=== PATIENT | male | born 1965 | race Caucasian/White ===

== ENCOUNTER 2020-02-27 10:11 | Emergency (ER) | payer BC, SELFPAY ==
[2020-02-27 10:12] VITALS: BP 140/86; PULSE 76; RESP 17; TEMP 36.1; O2SAT 97; BMI 32.0
--- NOTE | 2020-02-27 10:20 | NURSING ---
NO OLD EKGS
--- NOTE | 2020-02-27 10:26 | EKG12_ITS ---
Test Reason : NUMBNESS/TINGLING Blood Pressure : / mmHG Vent. Rate : 067 BPM Atrial Rate : 067 BPM P-R Int : 170 ms QRS Dur : 094 ms QT Int : 400 ms P-R-T Axes : 021 -17 016 degrees QTc Int : 422 ms Normal sinus rhythm Normal ECG Confirmed by PAOLO LOPEZ, RENEE ([id number]), writer editor LUCI DICKINSON ([id number]) on 03/01/2020 10:21:43 AM Referred By: MARS/ Confirmed By:RENEE BOONE MD
[2020-02-27] MEDS: Aspirin 81 MG TAB.CHEW 324 MG PO (10:42)
[2020-02-27 10:48] LABS: Absolute Lymphocyte Count 1.78 X10^3/uL (0.83-4.51); Absolute Neutrophil Count 3.5 X10^3/uL (2.0-7.7); Basophil# 0.04 X10^3/uL; Basophil% 0.7 % (0-1); Eosinophil# 0.23 X10^3/uL; Eosinophils% 3.7 % (0-5); Hematocrit 45.9 % (40-54); Lymphocyte # 1.78 X10^3/ul (4.0); Lymphocyte % 28.9 % (19-41); Mean Corp Hgb Conc 34.9 g/dL (32-36); Mean Corpuscular Hgb 31.6 pg (27.0-32.0); Mean Corpuscular Volume 90.7 fL (80-94); Mean Platelet Vol. 8.8 fl (6.2-12.0); Monocyte% 9.8 % (0-10); NRBC Flagged by Analyzer 0 % (0-5); Neutrophil # 3.49 X10^3/uL (2.7-7.7); Neutrophil % 56.7 % (47-70); Platelet Count 283 K/mm3 (150-450); RBC Distribution Width CV 12.5 % (11.6-14.6); RBC Distribution Width SD 40.8 fl (35.1-43.9); Red Blood Count 5.06 M/mm3 (4.6-6.2); White Blood Count 6.2 K/mm3 (4.4-11.0)
--- NOTE | 2020-02-27 10:50 | RAD_ITS ---
STUDY: X-RAY CHEST REASON FOR EXAM: Male, 54 years old. PT STATES HE WOKE UP WITH NUMBNESS AND TINGLING TO B/L ARMS -- ADDS THAT HIS IS HAVING CHEST PAIN WITH BREATHING NOW. TECHNIQUE: PA and lateral views of the chest. COMPARISON: None. FINDINGS: EKG electrodes are seen. The lungs are clear and expanded. There is no demonstrated pleural abnormality. Normal size heart. Normal mediastinum and amarjit. Normal visualized pulmonary arteries. Normal visualized aortic arch and descending thoracic aorta. There are mild degenerative changes of the visualized thoracic spine. Normal visualized ribs, clavicles, and shoulders. There is no demonstrated abnormality of the visualized soft tissue structures of the upper abdomen. RAD/Chest PA and Lateral IMPRESSION: Normal x-ray examination of the chest. Electronically Signed: Reji Villegas, at 11:02 EDT , Service support ,
[2020-02-27 11:06] LABS: D-Dimer Quantitative (DVT/PE) 0.38 FEU/ug/m (0.27-0.49)
[2020-02-27 11:13] LABS: Anion Gap 7 (5-15); BUN 13 mg/dL (7-18); BUN/Creat Ratio 14.8 RATIO (10-20); Calcium,Total 9.3 mg/dL (8.5-10.1); Chloride 105 mmol/L (98-107); Creatinine, Serum 0.88 mg/dL (0.70-1.30); EST Glomerular Filtration Rate 96 mL/min (>60); Est Glom Filt Rate - Afr Amer 116 mL/min (>60); Glucose 98 mg/dL (74-106); Magnesium 2.1 mg/dL (1.6-2.6); Sodium Level 139 mmol/L (136-145); Thyroid Stim Hormone (TSH) 1.57 uIU/mL (0.358-3.74)
--- NOTE | 2020-02-27 11:16 | ED.VIS.CHEST ---
History of Present Illness Chief Complaint: Numb/Ting Informant: Patient Narrative: Patient presenting for evaluation secondary to chest pain. Patient reports that over the course of the last couple weeks he has been dealing with a generalized feeling of illness and fatigue. He reports that it has been continuous. Has not been associated with heat or cold intolerance appetite change or any sort of weight loss. Patient does state that it is been associated with chest pain that will go on throughout the day, and it either goes away or he forgets about it. Patient states that today however, it was associated with a feeling of tingling in his bilateral arms left being worse than right. He denies any numbness or weakness. He denies any visual changes or speech difficulty associated with this. Patient denies any history of hypertension, hyperlipidemia, diabetes, premature heart disease, or smoking. He does frequently travel for work, and most recent long travel was the beginning of November. He feels that potentially has some asymmetric swelling in his left leg occasionally. He denies any infectious signs or symptoms. He is never had a stress test. Review of systems otherwise negative. Past Medical History - Allergies and Home Meds Allergies/Adverse Reactions: Allergies No Known Allergies Allergy (Verified 02/27/20 10:12) Primary Care Physician: Care Physician,No Primary [Primary Care Provider] - Prior records reviewed: Yes Past Medical History: None Smoking Status: Former smoker Alcohol: None Drugs: None Review of Systems All systems negative except as indicated General: Reports: Malaise Eyes: Denies: Visual changes - bilaterally, Diplopia ENT: Denies: Rhinorrhea, Sore throat Cardiovascular: Reports: Chest pain Respiratory: Denies: Dyspnea, Cough, Dyspnea on exertion Gastrointestinal: Denies: Abdominal pain, Nausea, Vomiting, Diarrhea, Melena, Hematochezia Genitourinary: Denies: Dysuria, Hematuria, Frequency Musculoskeletal: Denies: Back pain, Extremity Pain Skin: Denies: Rash, Wounds Neurological: Reports: Parasthesia Physical Exam Vital Signs/Narrative: Vital Signs Temp Pulse Resp BP Pulse Ox 02/27/20 10:12 96.9 F L 76 17 140/86 H 97 Inital Vital Signs reviewed: Yes General: Well nourished, Well developed, No Acute Distress Head: Normocephalic, Atraumatic Eyes: Perrl, EOMI ENT: Moist mucous membranes, No rhinorrhea Neck: Supple, Nontender Cardiovascular: Regular rate, Regular rhythm, No murmurs, - - 2+ radial pulses bilaterally symmetric. No evidence of vesicular rash on the chest Respiratory: No distress, CTA bilaterally, Chest nontender Abdomen: Soft, Nontender, Nondistended, Normal bowel sounds Back: Nontender, Normal Inspection Extremities: Nontender, No edema Skin: Normal color, No rash Neurological: Alert, Oriented x3, Cranial nerves II-XII grossly intact, Normal Strength, Normal Sensation Psychological: Normal affect, Normal Mood Diagnostic/Tx/Re-eval Clinical Impression(s) from Imaging Studies Chest X-Ray 02/27/20 10:50 IMPRESSION: Normal x-ray examination of the chest. Electronically Signed: Reji Villegas, at 11:02 EDT , Service support , Laboratory Data 02/27/20 02/27/20 02/27/20 10:40 10:40 10:40 WBC 6.2 RBC 5.06 Hgb 16.0 Hct 45.9 MCV 90.7 MCH 31.6 MCHC 34.9 RDW Std Deviation 40.8 RDW Coeff of Paty 12.5 Plt Count 283 MPV 8.8 Immature Gran % (Auto) 0.200 Neut % (Auto) 56.7 Lymph % (Auto) 28.9 [place] % (Auto) 9.8 Eos % (Auto) 3.7 Baso % (Auto) 0.7 Absolute Neuts (auto) 3.5 Absolute Lymphs (auto) 1.78 Nucleated RBC % 0 D-Dimer Quant (PE/DVT) 0.38 Sodium 139 Potassium 4.0 Chloride 105 Carbon Dioxide 27.0 Anion Gap 7 BUN 13 Creatinine 0.88 Estim Creat Clear Calc 104.10 Est GFR (MDRD) Af Amer 116 Est GFR (MDRD) Non-Af 96 BUN/Creatinine Ratio 14.8 Glucose 98 Calcium 9.3 Magnesium 2.1 Troponin I < 0.015 TSH 1.57 - EKG Initial EKG Interpretation: - - Sinus rhythm at [address] segments, normal T waves, normal NC and QTc intervals, no evidence of WPW or Brugada morphology. No acute ischemia or arrhythmia. - Medical Decision Making Patient presented secondary to chest pain. An EKG was obtained which was found to be normal. CBC chemistry troponin found to be unremarkable. Due to the patient's reports of potential leg swelling and recent travel I did get a d-dimer that was found to be negative. Due to the patient's reports of generalized malaise I also got a TSH which was found to be within normal limits. Patient's heart score is 2, this does not seem to be a presentation of acute coronary syndrome. I do not believe that he requires admission for further observation or provocative testing. Likewise, the patient is low risk for PE given his negative d-dimer, has no signs of infection, and otherwise has a normal work-up. Patient at this point has nonspecific malaise and chest pain. He does not require admission. I did recommend that the patient follow-up with his primary care physician. All questions were answered and patient was discharged in stable condition. ED Disposition - Plan for ED Patient: Disposition: Home or Assisted Living Diagnosis: Chest pain Instructions: ED Chest Pain Atypical Unkn Cause Referrals: Aftab Kim MD [STAFF PHYSICIAN] - 1 Week
[2020-02-27 12:08] VITALS: BP 132/82; PULSE 66; RESP 17; O2SAT 98
== END 2020-02-27 12:13 | disposition home or self-care (01) ==
PROVIDERS: Emergency Provider Emergency Medicine
DX: R07.9 Chest pain, unspecified (principal); R22.42 Localized swelling, mass and lump, left lower limb; R20.2 Paresthesia of skin; R53.83 Other fatigue; Z87.891 Personal history of nicotine dependence
CPT/HCPCS: 71046; 80048; 83735; 84443; 84484; 85025; 85379; 93005; 99285

== ENCOUNTER → 2020-03-26 12:32 | Outpatient (CLI) | payer BC, SELFPAY ==
[2020-02-27 10:12] VITALS: BMI 32.0
--- NOTE | 2020-03-26 12:41 | STE_ITS ---
Reason For Study: CHEST PAIN Stress Results Protocol: Harish Protocol Maximum Predicted HR: 165 bpm Target HR: 140 bpm % Maximum Predicted HR: 98 % DurationHeart Rate Stage (mm:ss) (bpm) BP BASELINE 76 118/82 STAGE 1 3:00 103 150/70 STAGE 2 3:00 116 154/80 STAGE 3 3:00 133 192/70 STAGE 4 2:00 162 / RECOVERY 93 130/70 Stress Duration: 11:00 mm:ss Maximum Stress HR: 162 bpm Baseline Echocardiogram Findings Stress Echo Wall motion Data Resting WM Intermediate WM Stress WM Interpretation Summary Exercise stress echo. Stress protocol: Resting EKG demonstrates normal sinus rhythm with a rate of 74 bpm normal intervals noted. Resting blood pressure is 118/82 mmHg. The patient exercised according to the regular Harish protocol for a total duration of 11 minutes. The maximum heart rate attained was 162 bpm which was 98% of the maximum predicted heart rate. The maximum workload was 13.7 metabolic equivalents. The patient maintained sinus rhythm throughout the recording with occasional premature ventricular complexes only noted. No clinical angina was noted the test was terminated due to the target heart rate being achieved and dyspnea. The peak blood pressure was 192/70 mmHg. Stress echocardiogram. The resting echocardiogram demonstrated a mildly globally reduced ejection fraction estimated at 47 to 50%. At peak exercise there was thickening of all joyner improvement in left ventricular cavity size with peaking of ejection fraction of 65%. No wall motion abnormalities were noted. The above is suggestive of no ischemia noted. Conclusion: Normal exercise stress test with no EKG criteria for ischemia. Mild resting cardiomyopathy with normal response to exercise. No ischemia noted. Ordering Physician: Jasper^Aftab^^^ Referring Physician: Aftab Hutchinson Performed By: Zaria Montero RDCS
== END ==
LOC: CVS 12:36
PROVIDERS: PCP Family Medicine; Referring Provider Family Medicine; Visit Provider Family Medicine
DX: R07.9 Chest pain, unspecified (principal); I10 Essential (primary) hypertension; R00.2 Palpitations
CPT/HCPCS: 93017; 93350

== ENCOUNTER → 2024-02-08 | Outpatient (CLI) | payer BC, SELFPAY | END | disposition home or self-care (01) | LOC: BFHLAB 11:00 → LABSPEC 11:01 | PROVIDERS: PCP Family Medicine; Referring Provider Family Medicine; Visit Provider Family Medicine | DX: R31.9 Hematuria, unspecified (principal) | CPT/HCPCS: 87086 ==

== ENCOUNTER → 2024-09-13 | Outpatient (CLI) | payer BC, SELFPAY ==
[2024-09-13 15:11] LABS: Absolute Lymphocyte Count 2.17 X10^3/uL (0.83-4.51); Absolute Neutrophil Count 5.1 X10^3/uL (2.0-7.7); Basophil# 0.05 X10^3/uL; Basophil% 0.6 % (0-1); Eosinophil# 0.23 X10^3/uL; Eosinophils% 2.7 % (0-5); Hematocrit 47.3 % (40-54); Hemoglobin 15.9 g/dL (13.0-16.5); Lymphocyte # 2.17 X10^3/ul (0.83-4.51); Lymphocyte % 25.7 % (19-41); Mean Corp Hgb Conc 33.6 g/dL (32-36); Mean Corpuscular Hgb 30.3 pg (27.0-32.0); Mean Corpuscular Volume 90.3 fL (80-94); Monocyte# 0.84 X10^3/uL; Monocyte% 9.9 % (0-10); NRBC Flagged by Analyzer 0 % (0-5); Neutrophil # 5.13 X10^3/uL (2.7-7.7); Neutrophil % 60.7 % (47-70); Platelet Count 328 K/mm3 (150-450); RBC Distribution Width CV 12.6 % (11.6-14.6); RBC Distribution Width SD 41.5 fl (35.1-43.9); Red Blood Count 5.24 M/mm3 (4.6-6.2); White Blood Count 8.5 K/mm3 (4.4-11.0)
[2024-09-13 15:40] LABS: ALB/GLOB Ratio 0.9 RATIO (0.9-2.4); AST(SGOT) 23 U/L (15-37); Alanine Aminotransfer ALT/SGPT 39 U/L (16-61); Albumin, Serum 3.8 g/dL (3.2-5.0); Alkaline Phosphatase 75 U/L (45-117); Anion Gap 8 (5-15); BUN 14 mg/dL (7-18); BUN/Creat Ratio 15.3 RATIO (10-20); Calcium,Total 9.6 mg/dL (8.5-10.1); Chloride 104 mmol/L (98-107); Cholesterol 179 mg/dL (200); Creatinine, Serum 0.92 mg/dL (0.70-1.30); EST Glomerular Filtration Rate 89 mL/min (>60); Est Glom Filt Rate - Afr Amer 108 mL/min (>60); Globulin 4.1 g/dL (2.2-4.2); Glucose 86 mg/dL (74-106); High Density Lipoprotein 44 mg/dL; Potassium 3.9 mmol/L (3.5-5.1); Protein, Total 7.9 g/dL (6.4-8.2); Sodium Level 137 mmol/L (136-145); T4 Free Direct 0.99 ng/dL (0.76-1.46); Triglycerides 196 mg/dL; Very Low Density Lipoprotein 39 mg/dL (5-40)
[2024-09-14 21:05] LABS: BNP,B-Type NATRIURETIC PEPTIDE 3.8 pg/mL (0-100)
== END | disposition home or self-care (01) ==
LOC: BFHLAB 11:08
PROVIDERS: PCP Family Medicine; Referring Provider Family Medicine; Visit Provider Family Medicine
DX: Z00.01 Encounter for general adult medical examination with abnormal findings (principal); Z12.5 Encounter for screening for malignant neoplasm of prostate; I10 Essential (primary) hypertension; I49.9 Cardiac arrhythmia, unspecified
CPT/HCPCS: 36415; 80053; 80061; 83880; 84153; 84439; 84443; 85025; G0103

== ENCOUNTER → 2024-11-07 | Outpatient (CLI) | payer BC, SELFPAY ==
[2024-11-14 16:09] LABS: Lyme IgG P18 Ab Absent (.); Lyme IgG P23 Ab Absent (.); Lyme IgG P28 Ab Absent (.); Lyme IgG P30 Ab Absent (.); Lyme IgG P39 Ab Absent (.); Lyme IgG P41 Ab Present (.); Lyme IgG P45 Ab Absent (.); Lyme IgG P58 Ab Absent (.); Lyme IgG P66 Ab Absent (.); Lyme IgG P93 Ab Absent (.); Lyme IgG WB Interpretation Negative (.); Lyme IgM P23 Ab Absent (.); Lyme IgM P39 Ab Absent (.); Lyme IgM P41 Ab Absent (.); Lyme IgM WB Interpretation Negative (.)
== END | disposition home or self-care (01) ==
LOC: BFHLAB 13:15
PROVIDERS: PCP Family Medicine; Referring Provider Family Medicine; Visit Provider Family Medicine
DX: R20.2 Paresthesia of skin (principal); H53.2 Diplopia
CPT/HCPCS: 36415; 86617

== ENCOUNTER → 2024-12-05 | Outpatient (CLI) | payer BC, SELFPAY ==
--- NOTE | 2024-12-05 06:36 | MRI_ITS ---
PROCEDURE: BRAIN W/WO CONTRAST (MRIBRWW), 12/05/2024 REASON FOR EXAM: PARESTHESIA OF SKIN, DIPLOPIA COMPARISON: None TECHNIQUE: Multisequence multiplanar MRI brain was performed with and without intravenous contrast. Contrast: 21 mL Clariscan. FINDINGS: Cerebrum: No acute infarct, appreciable hemorrhage, or mass identified. Midline structures including the pituitary, sella, and optic chiasm within normal limits. Likely prominent perivascular spaces in the bilateral basal ganglia. Cerebellum: Unremarkable. Brainstem: Tiny remote lacunar infarcts versus prominent perivascular spaces in the right [id number]-left middle cerebral peduncles. Ventricles/extra-axial spaces: Unremarkable. Major flow voids: Grossly unremarkable within limits of nondedicated technique. Paranasal sinuses: Moderate right and mild left lobulated mucosal thickening in the inferior right maxillary sinuses and/or polyps. Mucosal thickening and mild patchy opacification of the ethmoid air cells. Trace mucosal thickening in the sphenoid sinuses and frontal sinuses. Mucous retention cyst versus polyp in the right sphenoid sinus. Scalp/calvarium: Unremarkable. Orbits: Grossly unremarkable within limits of nondedicated technique. Other: No abnormal enhancement. MRI/Brain W/WO Contrast IMPRESSION: 1. No definite evidence of an acute intracranial process or other findings whic h might explain the patient's symptoms. 2. Maxillary predominant paranasal sinus disease. 3. Additional description as above. Reading Location: [id number]
== END | disposition home or self-care (01) ==
PROVIDERS: PCP Family Medicine; Referring Provider Family Medicine; Visit Provider Family Medicine
DX: R20.2 Paresthesia of skin (principal); H53.2 Diplopia
CPT/HCPCS: 70553; A9575